=== PATIENT | female | born 1970 | race Caucasian/White ===

== ENCOUNTER 2016-08-24 07:45 | Day surgery (SDC) | payer BC ==
--- NOTE | ~2016-08-24 | OP ---
Record Of Operation [facility] [address] [place]. [address] NAME: DEBBIE CUEVAS : 68 [place]US : [place] [facility] [place] [id number] AGE: 46 ADM/REG DATE : 08/24/16 MR#: [id number] REPORT SERV DATE: 08/24/16 DICTATED BY: REZA HAIRSTON DATE: 08/24/16 REPORT STATUS : Draft TRANSCRIBED BY: MODElvira DATE: 08/24/16 DATE OF PROCEDURE: 08/24/2016 PREOPERATIVE DIAGNOSIS: C6-C7 disk disease and stenosis with cervical radiculopathy. POSTOPERATIVE DIAGNOSES: C6-C7 disk disease and stenosis with cervical radiculopathy. PROCEDURES: 1. Anterior cervical diskectomy and fusion, C6-C7. 2. Placement of Medtronic PEEK interbody spacer, C6-C7. 3. Allograft bone matrix, neuromonitoring, and operative microscope. 4. Placement of Medtronic anterior cervical plate, C6-C7. SURGEON: Reza Hairston DO. ANESTHESIA: General. ESTIMATED BLOOD LOSS: 5 mL. COMPLICATIONS: None. INDICATIONS: The patient is a pleasant 46-year-old with intractable neck and left upper extremity pain and paresthesias, failed conservative treatment, and after discussion of the risks and benefits, elected to proceed with surgical intervention. DESCRIPTION OF PROCEDURE: I identified the patient in the holding area. Consent was obtained. Went to the operating room. Underwent general anesthesia with endotracheal intubation. Prepped and draped in the usual sterile fashion. Operative safety pause was performed, then we proceeded. A transverse incision was made over the left C6-C7 level taken through the platysma. Dissection was carried out down to the anterior aspect of the spine. Longus colli elevated at C6-C7. Self-retaining retractors were placed. Lagrange pin was placed and the operative level was verified with fluoroscopic image. Distraction was applied across the C6-C7 level. Operative microscope was brought in. A knife was used to perform an annulotomy. Free disk material was removed with the pituitary. Anterior osteophytes were removed with a Kerrison. Posterior osteophytes and uncinate processes were taken down with a angelita reece. Foraminotomies performed with a Kerrison. Endplates were prepared with curettes, rasp, and a cutting reece. Trial spacers were implanted, then a Medtronic PEEK interbody spacer with allograft bone matrix was placed at C6-C7. Lagrange pins were removed, and anterior cervical plate from Medtronic was placed at C6-C7. Screws were placed, final tightened. Locking mechanism was engaged. Final AP and lateral images were obtained. Irrigation was performed. Hemostasis was achieved. A layered closure was performed. Sterile dressings were applied. The patient was awoken and extubated, taken to the recovery room in stable condition. OPERATIVE FINDINGS: C6-7 disk disease and stenosis. No sustained neuromonitoring alerts. Record Of Operation [facility] [id number] [place]. [address] NAME: DEBBIE CUEVAS : 68 STATUS : REG [facility]#: [id number] AGE: 46 ADM/REG DATE : 08/24/16 MR#: [id number] REPORT SERV DATE: 08/24/16 DICTATED BY: REZA HAIRSTON DATE: 08/24/16 REPORT STATUS : Draft TRANSCRIBED BY: MODElvira DATE: 08/24/16 [place]IR[place]/MAGDALENA Reza Hairston DO / [id number] CC: DO NOHEMI Ford
[~2016-08-24 07:45] MED LIST: ALEVE220 MG PO; ASAB PO; CALTRA600D PO; CYANO1000T PO; DIL2TAB PO; L20 PO; MELATONIN5 M1 PO; MOBIC15 MG PO; MOBIC7.5 PO; ZOL100 PO
== END 2016-08-24 18:03 | disposition home or self-care (01) ==
LOC: SDC 07:45
PROVIDERS: Orthopaedic Surgery
PROC: 0RG10A0 Fusion of Cervical Vertebral Joint with Interbody Fusion Device, Anterior Approach, Anterior Column, Open Approach (ICD-10-PCS; principal; 2016-08-24 09:15)
DX: M50.123 Cervical disc disorder at C6-C7 level with radiculopathy (principal); M48.02 Spinal stenosis, cervical region; E11.9 Type 2 diabetes mellitus without complications; Z88.5 Allergy status to narcotic agent; Z87.891 Personal history of nicotine dependence; Z79.82 Long term (current) use of aspirin; Z79.899 Other long term (current) drug therapy; Z90.49 Acquired absence of other specified parts of digestive tract; Z90.710 Acquired absence of both cervix and uterus; Z98.890 Other specified postprocedural states
CPT/HCPCS: 80048; 82962; 85014; 85018; 87641; 88304; 88311; A9270-GY; C1713; J0330; J0690; J1170; J2250; J2370; J2405; J3010